=== PATIENT | male | born 1970 | race Caucasian/White ===

== ENCOUNTER 2017-12-30 12:11 | Emergency (ER) | payer MEDICAID ==
[~2017-12-30] VITALS: Ht 647.4 cm; Wt 86.0 kg
[~2017-12-30 12:11] MED LIST: HYDR-569 PO; IBUP-1986 PO
[2017-12-30 12:34] VITALS: BP 148/80
== END 2017-12-30 13:12 | disposition home or self-care (01) ==
LOC: ER 12:12
DX: M79.672 Pain in left foot (principal); M79.671 Pain in right foot; G89.29 Other chronic pain; Z98.61 Coronary angioplasty status; Z98.890 Other specified postprocedural states; Z79.899 Other long term (current) drug therapy; Z59.0 Homelessness
CPT/HCPCS: 99282; A6446; A6449

== ENCOUNTER 2019-12-13 11:12 | Emergency (ER) | payer MEDICAID ==
[~2019-12-13] VITALS: Ht 180.3 cm; Wt 113.0 kg
[~2019-12-13 11:12] MED LIST changes: +HYDR-4383 PO; -HYDR-569 PO
[2019-12-13 11:15] VITALS: BP 140/95
[2019-12-13] MEDS ORDERED: bacitracin 15gm ointment TP ONE (11:45)
== END 2019-12-13 12:15 ==
LOC: ER 11:13
DX: S80.212A Abrasion, left knee, initial encounter (principal); F10.129 Alcohol abuse with intoxication, unspecified; G89.29 Other chronic pain; Z72.89 Other problems related to lifestyle; Z98.890 Other specified postprocedural states; Z98.61 Coronary angioplasty status; Z59.0 Homelessness; Z79.899 Other long term (current) drug therapy; X58.XXXA Exposure to other specified factors, initial encounter; Y93.89 Activity, other specified; Y92.89 Other specified places as the place of occurrence of the external cause; Y99.8 Other external cause status
CPT/HCPCS: 99284